=== PATIENT | female | born 1985 | race Caucasian/White ===

== ENCOUNTER 2021-02-20 18:49 | Emergency (ER) | payer OTHER, SELFPAY ==
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
[2021-02-20 19:15] VITALS: BP 150/89; PULSE 99; RESP 16; TEMP 36.9; O2SAT 100
[2021-02-20 20:22] VITALS: BP 120/94; PULSE 96; RESP 16; O2SAT 98
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
[2021-02-20] MEDS: IBUPROFEN 600 MG TABLET PO (20:53)
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
== END 2021-02-20 20:55 | disposition home or self-care (01) ==
LOC: ANHED 20:48
PROVIDERS: Emergency Provider Emergency Medicine
DX: S40.012A Contusion of left shoulder, initial encounter (principal); F17.200 Nicotine dependence, unspecified, uncomplicated; V43.52XA Car driver injured in collision with other type car in traffic accident, initial encounter
CPT/HCPCS: 71046; 73030; 99284; A9270